=== PATIENT | female | born 1980 | race Caucasian/White ===

== ENCOUNTER 2017-01-03 06:41 | Inpatient (IN) | payer OTHER ==
[2017-01-03] VITALS (8 sets, daily range): BP systolic 113–125; BP diastolic 67–87
[~2017-01-03] VITALS: Ht 175.3 cm; Wt 65.3 kg
[2017-01-03] MEDS ORDERED: BIRTH CONTROL (06:49)
[2017-01-03 07:42] LABS: HEMATOCRIT 44.3 % (37.0-47.0); HEMOGLOBIN 15.1 gm/dL (12.0-15.0); MCH 31.1 pg (26.0-34.0); MCV 91.3 fL (80.0-100.0); PLATELET COUNT 197 thou/uL (150-400); RBC 4.86 mil/uL (4.20-5.00); RDW 13.3 % (10.5-14.5); WBC 14.2 thou/uL (4.0-11.0)
[2017-01-03 07:45] LABS: URINE BLOOD 2+ (Negative); URINE COLOR YELLOW; URINE GLUCOSE-RANDOM* NEGATIVE (Negative); URINE KETONES 1+ (Negative); URINE LEUKOCYTES-REFLEX 1+ (Negative); URINE PROTEIN (DIPSTICK) TRACE (Negative); URINE UROBILINOGEN 0.2 E.U./dl (0.2-1.0)
[2017-01-03 07:47] LABS: ICTOTEST (BILI CONFIRMATORY) Negative (Negative); URINE BILIRUBIN NEGATIVE (Negative)
[2017-01-03 07:50] LABS: MANUAL DIFF YES
[2017-01-03 07:57] LABS: CALCIUM 9.1 mg/dL (8.5-10.1); CREATININE 0.7 mg/dL (0.6-1.0); SALICYLATE 4.1 mg/dL (2.8-20.0)
[2017-01-03 07:58] LABS: POTASSIUM 3.7 mmol/L (3.5-5.1)
[2017-01-03 08:03] LABS: AMP/METHAMP Negative (Negative); BARBITURATES Negative (Negative); BENZODIAZEPINES POSITIVE (Negative); COCAINE Negative (Negative); METHADONE Negative (Negative); OPIATES Negative (Negative); PCP Negative (Negative); THC POSITIVE (Negative)
[2017-01-03] MEDS ORDERED: ZOLOFT50 MG PO (08:19)
[2017-01-03] MEDS ORDERED: CLONAZEPAM 0.50.5 M1 PO (08:19)
[2017-01-03 08:26] LABS: ABSOLUTE NEUTROPHILS 13.2 thou/uL (1.4-8.2); ANISOCYTOSIS SLIGHT; TOTAL CELL COUNT 100
[2017-01-03 08:42] LABS: CASTS None Seen /LPF (None Seen); CRYSTALS None Seen /LPF (None Seen); SQUAMOUS 0-3 Few /LPF (0-3); URINE RBC 0-2 Rare /HPF (0-2); URINE WBC-REFLEX 6-15 Few /HPF (0-5)
[2017-01-04 03:00] VITALS: BP 119/79
[2017-01-04 07:15] VITALS: BP 120/79
[2017-01-04] MEDS ORDERED: PROTONIX40 M1 PO (13:31)
[2017-01-04] MEDS ORDERED: MIRALAX17 GM PO (13:31)
[2017-01-04] MEDS ORDERED: HALOPERIDOL5 MG/1 ML IV PUSH (13:31)
[2017-01-04] MEDS ORDERED: CIPRO500 MG PO (13:38)
== END 2017-01-04 15:27 | DRG 885 ==
LOC: ER 06:41 → EROBS 14:35 → ICU 14:35 → 4E 14:35 → ICU 15:07 → 4E 22:04
PROVIDERS: Emergency Medicine
DX: F23 Brief psychotic disorder (principal); N39.0 Urinary tract infection, site not specified; F12.90 Cannabis use, unspecified, uncomplicated; F32.9 Major depressive disorder, single episode, unspecified; F41.9 Anxiety disorder, unspecified; Z91.5 Personal history of self-harm; Z79.899 Other long term (current) drug therapy
CPT/HCPCS: 10783